=== PATIENT | female | born 1975 | race Two or more races ===

== ENCOUNTER 2018-02-01 12:55 | Emergency (ER) | payer MEDICARE, MEDICAID ==
[~2018-02-01] VITALS: Ht 157.5 cm; Wt 54.0 kg
[~2018-02-01 12:55] MED LIST: CIPR-230 PO; FOLI1TAB16 PO; FURO20TA4 PO; LEVO125T PO; MIDO5TAB PO; PANT-47 PO; RIFA550T PO; SPIR50TA5 PO; THIA500T; TRAM50TA2 PO; ZINC30CA PO
[2018-02-01 13:06] VITALS: BP 100/59
[2018-02-01] MEDS ORDERED: CLIN300C85 PO (14:00)
== END 2018-02-01 14:10 | disposition home or self-care (01) ==
LOC: ER 12:55
DX: L76.82 Other postprocedural complications of skin and subcutaneous tissue (principal); S31.105A Unspecified open wound of abdominal wall, periumbilic region without penetration into peritoneal cavity, initial encounter; K21.9 Gastro-esophageal reflux disease without esophagitis; E05.90 Thyrotoxicosis, unspecified without thyrotoxic crisis or storm; Z79.2 Long term (current) use of antibiotics; X58.XXXA Exposure to other specified factors, initial encounter; Y93.89 Activity, other specified; Y92.89 Other specified places as the place of occurrence of the external cause; Y99.8 Other external cause status
CPT/HCPCS: 99283; A6255

== ENCOUNTER 2018-02-15 19:54 | Emergency (ER) | payer MEDICARE, MEDICAID ==
[~2018-02-15] VITALS: Ht 157.5 cm; Wt 54.6 kg
[~2018-02-15 19:54] MED LIST changes: +CLIN300C85 PO
[2018-02-15] MEDS ORDERED: ondansetron/PF 4mg/2ml inj IV ONE (21:35)
[2018-02-15] MEDS ORDERED: morphine 4 MG/ML inj SYRINge IV ONE (21:35)
[2018-02-15] MEDS ORDERED: iohexol 300mg/ml 100ml inj. ONE (21:44)
[2018-02-15 22:13] LABS: URINE HCG NEGATIVE (NEG)
[2018-02-15 22:15] LABS: BASOPHILS # (AUTO) 0.1 X10'3 (0-0.2); BASOPHILS % (AUTO) 2.8 % (0-1); EOSINOPHILS # (AUTO) 0.1 X10'3 (0-0.9); EOSINOPHILS % (AUTO) 3.4 % (0-6); HEMATOCRIT 31.8 % (35.0-45.0); HEMOGLOBIN 10.9 g/dl (12.0-16.0); LYMPHOCYTES # (AUTO) 1.2 X10'3 (1.1-4.8); LYMPHOCYTES % (AUTO) 33.5 % (21-51); MEAN CORPUSCULAR HEMOGLOBIN 33.9 PG (27.0-31.0); MEAN CORPUSCULAR HGB CONC 34.5 % (33.0-36.5); MEAN CORPUSCULAR VOLUME 98.2 FL (78-98); MONOCYTES # (AUTO) 0.3 X10'3 (0-0.9); MONOCYTES % (AUTO) 6.9 % (2-12); NEUTROPHILS # (AUTO) 1.9 X10'3 (1.8-7.7); NEUTROPHILS % (AUTO) 53.4 % (42-75); PLATELET COUNT 62 X10'3 (140-440); RED BLOOD COUNT 3.23 X10'6 (4.20-5.60); WHITE BLOOD COUNT 3.7 X10'3 (4.5-11.0)
[2018-02-15 22:26] LABS: INR 1.2 INR; PARTIAL THROMBOPLASTIN TIME 27 SECONDS (22-32); PROTHROMBIN TIME 12.3 SECONDS (9.0-12.0)
[2018-02-15 22:33] LABS: ALANINE AMINOTRANSFERASE 31 U/L (12-78); ALBUMIN/GLOBULIN RATIO 0.8 (1.1-1.5); ALKALINE PHOSPHATASE 174 IU/L (46-116); ANION GAP 8 (8-16); ASPARTATE AMINO TRANSFERASE 35 U/L (10-37); BILIRUBIN,TOTAL 0.9 MG/DL (0.1-1.0); BLOOD UREA NITROGEN 15 MG/DL (7-18); BUN/CREATININE RATIO 21.1 (6.6-38.0); CALCIUM 8.5 MG/DL (8.5-10.1); CHLORIDE 108 MMOL/L (99-107); CREATININE 0.71 MG/DL (0.40-0.90); GLUCOSE 130 MG/DL (70-104); LIPASE 266 U/L (73-393); MAGNESIUM 1.6 MG/DL (1.5-2.4); POTASSIUM 3.9 MMOL/L (3.5-5.1); SODIUM 139 MMOL/L (135-145); TOTAL CARBON DIOXIDE 22.9 MMOL/L (24-32); TOTAL PROTEIN 6.7 G/DL (6.4-8.2); eGFR 89 ML/MIN
[2018-02-16 01:07] VITALS: BP 113/65
== END 2018-02-16 01:20 | disposition home or self-care (01) ==
LOC: ER 19:54
DX: S30.1XXA Contusion of abdominal wall, initial encounter (principal); K21.9 Gastro-esophageal reflux disease without esophagitis; E05.90 Thyrotoxicosis, unspecified without thyrotoxic crisis or storm; Z88.1 Allergy status to other antibiotic agents; Z79.899 Other long term (current) drug therapy; X58.XXXA Exposure to other specified factors, initial encounter; Y93.89 Activity, other specified; Y92.89 Other specified places as the place of occurrence of the external cause; Y99.8 Other external cause status
CPT/HCPCS: 36415; 74177; 80053; 81025; 82140; 83690; 83735; 85025; 85610; 85730; 96374; 96375; 99285; J2270; J2405; J7030; Q9967

== ENCOUNTER 2018-03-16 10:29 | Outpatient (CLI) | payer MEDICARE, MEDICAID | END 2018-03-16 23:59 | disposition home or self-care (01) | LOC: RAD 10:29 | PROVIDERS: ATTEND Internal Medicine Gastroenterology | DX: K70.31 Alcoholic cirrhosis of liver with ascites (principal); I81 Portal vein thrombosis; F10.10 Alcohol abuse, uncomplicated; Z76.82 Awaiting organ transplant status; Z98.890 Other specified postprocedural states; Z87.19 Personal history of other diseases of the digestive system; Z87.891 Personal history of nicotine dependence; Z79.899 Other long term (current) drug therapy | CPT/HCPCS: 76700 ==

== ENCOUNTER 2018-03-27 13:26 | Emergency (ER) | payer MEDICARE, MEDICAID ==
[~2018-03-27] VITALS: Ht 157.5 cm; Wt 54.5 kg
[2018-03-27 14:07] LABS: HEMATOCRIT 38.2 % (35.0-45.0); HEMOGLOBIN 13.5 g/dl (12.0-16.0); MEAN CORPUSCULAR HEMOGLOBIN 34.3 PG (27.0-31.0); MEAN CORPUSCULAR HGB CONC 35.3 % (33.0-36.5); MEAN CORPUSCULAR VOLUME 97.2 FL (78-98); MEAN PLATELET VOLUME 9.4 FL (7.4-10.4); PLATELET COUNT 51 X10'3 (140-440); RED BLOOD COUNT 3.93 X10'6 (4.20-5.60); RED CELL DISTRIBUTION WIDTH 14.4 % (11.5-14.5); WHITE BLOOD COUNT 3.9 X10'3 (4.5-11.0)
[2018-03-27 14:25] LABS: ANISOCYTOSIS 1+; PLATELET ESTIMATE DECREASED; TOTAL CELLS COUNTED 100
[2018-03-27 14:28] LABS: INR 1.1 INR; PARTIAL THROMBOPLASTIN TIME 29 SECONDS (22-32); PROTHROMBIN TIME 11.6 SECONDS (9.0-12.0)
[2018-03-27 14:29] LABS: URINE HCG NEGATIVE (NEG)
[2018-03-27 14:31] LABS: ALANINE AMINOTRANSFERASE 47 U/L (12-78); ALBUMIN 3.6 G/DL (3.4-5.0); ALKALINE PHOSPHATASE 184 IU/L (46-116); ANION GAP 10 (8-16); ASPARTATE AMINO TRANSFERASE 88 U/L (10-37); BILIRUBIN,TOTAL 3.8 MG/DL (0.1-1.0); BLOOD UREA NITROGEN 12 MG/DL (7-18); BUN/CREATININE RATIO 18.2 (6.6-38.0); CALCIUM 9.1 MG/DL (8.5-10.1); CHLORIDE 102 MMOL/L (99-107); CREATININE 0.66 MG/DL (0.40-0.90); GLUCOSE 106 MG/DL (70-104); POTASSIUM 3.5 MMOL/L (3.5-5.1); SODIUM 137 MMOL/L (135-145); TOTAL CARBON DIOXIDE 25.1 MMOL/L (24-32); eGFR > 90 ML/MIN
[2018-03-27 14:35] LABS: CLARITY,URINE SLIGHTLY CLOUDY (Clear); COLOR,URINE AMBER (Yellow); GLUCOSE, URINE NEGATIVE (Neg); KETONES,URINE TRACE mg/dl (Neg); LEUKOCYTE ESTERASE ,URINE NEGATIVE (Neg); NITRITES, URINE POSITIVE (Neg); OCCULT BLOOD,URINE LARGE (Neg); PH,URINE 6.5 (4.8-8.0); PROTEIN,URINE 100 mg/dl (Neg)
[2018-03-27 14:35] LABS: LIPASE 122 U/L (73-393)
[2018-03-27 14:38] LABS: ALBUMIN/GLOBULIN RATIO 0.9 (1.1-1.5); TOTAL PROTEIN 7.7 G/DL (6.4-8.2)
[2018-03-27 14:47] LABS: UA COLLECTION TYPE CLN CATCH MIDSTREAM
[2018-03-27 14:50] LABS: BACTERIA,URINE 3+ /HPF (Neg); SQUAMOUS EPITHELIAL CELL,UR MODERATE /LPF (FEW)
[2018-03-27] MEDS ORDERED: HYDROmorphone 1 mg/ml syringe IV ONE (15:50)
[2018-03-27] MEDS ORDERED: proCHLORperazine 10 MG/2 ml inj IV ONE (15:50)
[2018-03-27] MEDS ORDERED: famotidine/PF 10 mg/ml inj IV ONE (15:50)
[2018-03-27] MEDS ORDERED: normal saline 1000ML IV soln IVB ONE (15:50)
[2018-03-27] MEDS ORDERED: NITR100C6 PO (15:52)
[2018-03-27 16:51] VITALS: BP 116/83
== END 2018-03-27 16:53 | disposition home or self-care (01) ==
LOC: ER 13:27
DX: N39.0 Urinary tract infection, site not specified (principal); K74.60 Unspecified cirrhosis of liver; R51 Headache; K21.9 Gastro-esophageal reflux disease without esophagitis; E05.90 Thyrotoxicosis, unspecified without thyrotoxic crisis or storm; Z88.1 Allergy status to other antibiotic agents; Z79.899 Other long term (current) drug therapy
CPT/HCPCS: 36415; 71045; 80053; 81001; 81025; 83690; 84484; 85025; 85610; 85730; 87077; 87088; 87186; 96361; 96374; 96375; 99285; J0780; J1170; J3490; J7030; 93005

== ENCOUNTER 2018-08-09 07:55 | Emergency (ER) | payer MEDICARE, MEDICAID ==
[~2018-08-09] VITALS: Ht 157.5 cm; Wt 54.5 kg
[~2018-08-09 07:55] MED LIST changes: +NITR100C6 PO
[2018-08-09] MEDS ORDERED: diphenhydrAMINE 50 mg/ml inj IV ONE (08:25)
[2018-08-09] MEDS ORDERED: morphine 4 MG/ML inj SYRINge IV ONE (08:25)
[2018-08-09] MEDS ORDERED: ondansetron/PF 4mg/2ml inj IV ONE (08:25)
[2018-08-09 08:51] LABS: BASOPHILS % (AUTO) 0.5 % (0-1); EOSINOPHILS % (AUTO) 0.3 % (0-6); HEMATOCRIT 37.8 % (35.0-45.0); HEMOGLOBIN 13.1 g/dl (12.0-16.0); LYMPHOCYTES # (AUTO) 0.8 X10'3 (1.1-4.8); LYMPHOCYTES % (AUTO) 16.4 % (21-51); MEAN CORPUSCULAR HEMOGLOBIN 34.6 PG (27.0-31.0); MEAN CORPUSCULAR HGB CONC 34.5 % (33.0-36.5); MEAN CORPUSCULAR VOLUME 100.2 FL (78-98); MEAN PLATELET VOLUME 8.3 FL (7.4-10.4); MONOCYTES # (AUTO) 0.6 X10'3 (0-0.9); MONOCYTES % (AUTO) 12.2 % (2-12); NEUTROPHILS # (AUTO) 3.6 X10'3 (1.8-7.7); NEUTROPHILS % (AUTO) 70.6 % (42-75); PLATELET COUNT 54 X10'3 (140-440); RED BLOOD COUNT 3.77 X10'6 (4.20-5.60); RED CELL DISTRIBUTION WIDTH 15.4 % (11.5-14.5); WHITE BLOOD COUNT 5.1 X10'3 (4.5-11.0)
--- NOTE | 2018-08-09 08:55 | NUR ---
Patient states pain still 03/12, PA Sharon aware.
[2018-08-09 09:11] LABS: ALANINE AMINOTRANSFERASE 114 U/L (12-78); ALBUMIN 3.7 G/DL (3.4-5.0); ALKALINE PHOSPHATASE 105 IU/L (46-116); ANION GAP 16 (8-16); ASPARTATE AMINO TRANSFERASE 451 U/L (10-37); BILIRUBIN,TOTAL 2.9 MG/DL (0.1-1.0); BLOOD UREA NITROGEN 11 MG/DL (7-18); CALCIUM 8.3 MG/DL (8.5-10.1); CHLORIDE 99 MMOL/L (99-107); CREATININE 0.61 MG/DL (0.40-0.90); GLUCOSE 96 MG/DL (70-104); POTASSIUM 3.6 MMOL/L (3.5-5.1); SODIUM 137 MMOL/L (135-145); TOTAL CARBON DIOXIDE 22.4 MMOL/L (24-32); TOTAL PROTEIN 7.4 G/DL (6.4-8.2); eGFR > 90 ML/MIN
[2018-08-09] MEDS ORDERED: CEPH-572 PO (09:18)
[2018-08-09] MEDS ORDERED: TRAM50TA2 PO (09:18)
[2018-08-09 09:45] VITALS: BP 123/53
== END 2018-08-09 10:15 | disposition home or self-care (01) ==
LOC: ER 07:55
DX: M54.5 Low back pain (principal); K74.60 Unspecified cirrhosis of liver; K21.9 Gastro-esophageal reflux disease without esophagitis; E05.90 Thyrotoxicosis, unspecified without thyrotoxic crisis or storm; Z88.1 Allergy status to other antibiotic agents; Z79.2 Long term (current) use of antibiotics; Z79.899 Other long term (current) drug therapy
CPT/HCPCS: 36415; 80053; 85025; 96374; 96375; 99283; J1200; J2270; J2405

== ENCOUNTER 2019-07-05 16:52 | Emergency (ER) | payer MEDICAID, MEDICARE ==
[~2019-07-05] VITALS: Ht 157.5 cm; Wt 59.1 kg
[~2019-07-05 16:52] MED LIST changes: +CLIN-90 PO; -CLIN300C85 PO; -MIDO5TAB PO; +MIDO5TAB4 PO
[2019-07-05 16:57] VITALS: BP 122/60
[2019-07-05] MEDS ORDERED: DOXY100C43 PO (18:07)
== END 2019-07-05 18:35 | disposition home or self-care (01) ==
LOC: ER 16:53
DX: J32.9 Chronic sinusitis, unspecified (principal); K21.9 Gastro-esophageal reflux disease without esophagitis; E05.90 Thyrotoxicosis, unspecified without thyrotoxic crisis or storm; Z98.890 Other specified postprocedural states; Z88.1 Allergy status to other antibiotic agents; Z79.2 Long term (current) use of antibiotics; Z79.899 Other long term (current) drug therapy
CPT/HCPCS: 99283

== ENCOUNTER 2019-07-11 14:09 | Emergency (ER) | payer MEDICAID ==
[~2019-07-11] VITALS: Ht 157.5 cm; Wt 59.1 kg
[~2019-07-11 14:09] MED LIST changes: +DOXY100C43 PO
[2019-07-11 14:24] VITALS: BP 126/87
--- NOTE | 2019-07-11 14:44 | NUR ---
PT C/O NAUSEA AFTER TAKING DOXYCYCLINE STOPPED LAST DOSE.
--- NOTE | 2019-07-11 14:46 | NUR ---
LAST DOSE LAST NIGHT.
[2019-07-11] MEDS ORDERED: ONDA4TAB6 PO (15:32)
== END 2019-07-11 16:00 | disposition home or self-care (01) ==
LOC: ER 14:09
DX: R11.0 Nausea (principal); K21.9 Gastro-esophageal reflux disease without esophagitis; Z98.890 Other specified postprocedural states; Z88.0 Allergy status to penicillin; Z79.2 Long term (current) use of antibiotics; Z79.899 Other long term (current) drug therapy
CPT/HCPCS: 99283

== ENCOUNTER 2019-07-25 17:15 | Emergency (ER) | payer MEDICAID ==
[~2019-07-25] VITALS: Ht 157.5 cm; Wt 61.4 kg
[~2019-07-25 17:15] MED LIST changes: -DOXY100C43 PO; +ONDA4TAB6 PO
[2019-07-25 17:20] VITALS: BP 142/90
[2019-07-25 17:51] LABS: BASOPHILS % (AUTO) 0.7 % (0-1); EOSINOPHILS % (AUTO) 0.6 % (0-6); HEMATOCRIT 39.7 % (35.0-45.0); HEMOGLOBIN 13.8 g/dl (12.0-16.0); LYMPHOCYTES # (AUTO) 0.9 X10'3 (1.1-4.8); LYMPHOCYTES % (AUTO) 18.1 % (21-51); MEAN CORPUSCULAR HEMOGLOBIN 35.4 PG (27.0-31.0); MEAN CORPUSCULAR HGB CONC 34.9 g/dL (33.0-36.5); MEAN CORPUSCULAR VOLUME 101.5 FL (78-98); MEAN PLATELET VOLUME 8.7 FL (7.4-10.4); MONOCYTES # (AUTO) 0.3 X10'3 (0-0.9); MONOCYTES % (AUTO) 6.3 % (2-12); NEUTROPHILS # (AUTO) 3.6 X10'3 (1.8-7.7); NEUTROPHILS % (AUTO) 74.3 % (42-75); PLATELET COUNT 59 X10'3 (140-440); RED BLOOD COUNT 3.91 X10'6 (4.20-5.60); RED CELL DISTRIBUTION WIDTH 13.2 % (11.5-14.5); WHITE BLOOD COUNT 4.9 X10'3 (4.5-11.0)
[2019-07-25 18:04] LABS: ALANINE AMINOTRANSFERASE 42 U/L (12-78); ALBUMIN 3.8 G/DL (3.4-5.0); ALKALINE PHOSPHATASE 110 IU/L (46-116); ANION GAP 9 (8-16); ASPARTATE AMINO TRANSFERASE 52 U/L (10-37); BILIRUBIN,TOTAL 1.5 MG/DL (0.1-1.0); BLOOD UREA NITROGEN 11 MG/DL (7-18); BUN/CREATININE RATIO 10.8 (6.6-38.0); CALCIUM 8.7 MG/DL (8.5-10.1); CHLORIDE 101 MMOL/L (99-107); CREATININE 1.02 MG/DL (0.40-0.90); GLUCOSE 106 MG/DL (70-104); SODIUM 135 MMOL/L (135-145); TOTAL CARBON DIOXIDE 25.4 MMOL/L (24-32); TOTAL PROTEIN 7.6 G/DL (6.4-8.2); eGFR 59 ML/MIN
[2019-07-25 18:18] LABS: POTASSIUM 3.9 MMOL/L (3.5-5.1)
--- NOTE | 2019-07-25 18:30 | NUR ---
STOOL SPECIMEN SENT
[2019-07-25 18:32] LABS: URINE HCG NEGATIVE (NEG)
[2019-07-25] MEDS ORDERED: HYDR30CR99 TP (18:36)
== END 2019-07-25 19:01 | disposition home or self-care (01) ==
LOC: ER 17:15
DX: K62.5 Hemorrhage of anus and rectum (principal); R19.7 Diarrhea, unspecified; K21.9 Gastro-esophageal reflux disease without esophagitis; E03.9 Hypothyroidism, unspecified; F10.99 Alcohol use, unspecified with unspecified alcohol-induced disorder; Z86.2 Personal history of diseases of the blood and blood-forming organs and certain disorders involving the immune mechanism; Z88.1 Allergy status to other antibiotic agents; Z79.899 Other long term (current) drug therapy; Y90.9 Presence of alcohol in blood, level not specified
CPT/HCPCS: 36415; 80053; 81025; 85025; 99283

== ENCOUNTER 2019-11-28 15:19 | Emergency (ER) | payer MEDICAID ==
[~2019-11-28] VITALS: Ht 157.5 cm; Wt 63.6 kg
[~2019-11-28 15:19] MED LIST changes: -CLIN-90 PO; +CLIN-97 PO
[2019-11-28 15:24] VITALS: BP 128/96
[2019-11-28 16:44] LABS: CLARITY,URINE CLEAR (Clear); COLOR,URINE STRAW (Yellow); GLUCOSE, URINE NEGATIVE (Neg); KETONES,URINE NEGATIVE (Neg); LEUKOCYTE ESTERASE ,URINE NEGATIVE (Neg); NITRITES, URINE NEGATIVE (Neg); OCCULT BLOOD,URINE SMALL (Neg); PROTEIN,URINE 30 mg/dl (Neg)
[2019-11-28 16:47] LABS: UA COLLECTION TYPE CLN CATCH MIDSTREAM; URINE HCG NEGATIVE (NEG)
[2019-11-28 16:50] LABS: MUCUS STRANDS NONE SEEN /LPF (Neg); SQUAMOUS EPITHELIAL CELL,UR MANY /LPF (FEW); TRANSITIONAL EPI CELLS,URINE FEW /HPF
[2019-11-28 16:51] LABS: BACTERIA,URINE FEW /HPF (Neg); WBC,URINE 0-4 /HPF (0-4)
[2019-11-28] MEDS ORDERED: ketorolac trometh. 30mg/ml inj. IM ONE (17:00)
== END 2019-11-28 17:23 | disposition home or self-care (01) ==
LOC: ER 15:20
DX: S39.012A Strain of muscle, fascia and tendon of lower back, initial encounter (principal); K21.9 Gastro-esophageal reflux disease without esophagitis; Z98.890 Other specified postprocedural states; Z88.0 Allergy status to penicillin; Z88.1 Allergy status to other antibiotic agents; Z79.2 Long term (current) use of antibiotics; Z79.899 Other long term (current) drug therapy; X58.XXXA Exposure to other specified factors, initial encounter; Y93.89 Activity, other specified; Y92.89 Other specified places as the place of occurrence of the external cause; Y99.8 Other external cause status
CPT/HCPCS: 72131; 81001; 81025; 96372; 99284; J1885

== ENCOUNTER 2019-12-03 12:28 | Emergency (ER) | payer MEDICAID ==
[~2019-12-03] VITALS: Ht 157.5 cm; Wt 64.0 kg
--- NOTE | 2019-12-03 12:51 | NUR ---
Pt. was seen here last thursday for the same reason and was given toradol for the pain. Was told to follow up with PCP which she did on thursday and was perscriped prednisone 20mg BID x5days. She has returned to the ER because she hasn't experienced any relief from her back pain.
[2019-12-03] MEDS ORDERED: TRAM50TA2 PO (13:33)
[2019-12-03] MEDS ORDERED: traMADol 50MG tablet PO ONE (13:35)
[2019-12-03 13:57] VITALS: BP 102/68
== END 2019-12-03 14:05 | disposition home or self-care (01) ==
LOC: ER 12:28
DX: M54.5 Low back pain (principal); G89.29 Other chronic pain; K21.9 Gastro-esophageal reflux disease without esophagitis; Z72.89 Other problems related to lifestyle; Z79.2 Long term (current) use of antibiotics; Z79.01 Long term (current) use of anticoagulants; Z79.899 Other long term (current) drug therapy
CPT/HCPCS: 99283

== ENCOUNTER 2020-06-10 16:45 | Emergency (ER) | payer MEDICAID ==
[~2020-06-10] VITALS: Ht 157.5 cm; Wt 64.7 kg
[2020-06-10] MEDS ORDERED: ondansetron/PF 4mg/2ml inj IV ONE (17:50)
[2020-06-10] MEDS ORDERED: pantoprazole 40 MG vial IV ONE (17:50)
[2020-06-10] MEDS ORDERED: normal saline 1000ML IV soln IVB ONE (17:50)
[2020-06-10] MEDS ORDERED: ketorolac trometh. 30mg/ml inj. IV ONE (17:50)
[2020-06-10] MEDS ORDERED: famotidine/PF 10 mg/ml inj IV ONE (17:50)
[2020-06-10 18:50] LABS: MONOCYTES # (AUTO) 0.4 X10'3 (0-0.9); MONOCYTES % (AUTO) 10.2 % (2-12)
[2020-06-10 18:51] LABS: BASOPHILS % (AUTO) 0.9 % (0-1); EOSINOPHILS % (AUTO) 0.9 % (0-6); HEMATOCRIT 46.9 % (35.0-45.0); HEMOGLOBIN 16.4 g/dl (12.0-16.0); LYMPHOCYTES # (AUTO) 0.7 X10'3 (1.1-4.8); LYMPHOCYTES % (AUTO) 15.9 % (21-51); MEAN CORPUSCULAR HEMOGLOBIN 37.3 PG (27.0-31.0); MEAN CORPUSCULAR HGB CONC 34.9 g/dL (33.0-36.5); MEAN CORPUSCULAR VOLUME 107.2 FL (78-98); MEAN PLATELET VOLUME 9.4 FL (7.4-10.4); NEUTROPHILS # (AUTO) 3.1 X10'3 (1.8-7.7); NEUTROPHILS % (AUTO) 72.1 % (42-75); PLATELET COUNT 60 X10'3 (140-440); RED BLOOD COUNT 4.38 X10'6 (4.20-5.60); RED CELL DISTRIBUTION WIDTH 13.7 % (11.5-14.5); WHITE BLOOD COUNT 4.3 X10'3 (4.5-11.0)
[2020-06-10 19:23] LABS: ALANINE AMINOTRANSFERASE 67 U/L (12-78); ALBUMIN 3.5 G/DL (3.4-5.0); ALBUMIN/GLOBULIN RATIO 0.9 (1.1-1.5); ALKALINE PHOSPHATASE 238 IU/L (46-116); ANION GAP 13 (8-16); ASPARTATE AMINO TRANSFERASE 149 U/L (10-37); BILIRUBIN,TOTAL 1.7 MG/DL (0.1-1.0); BLOOD UREA NITROGEN 7 MG/DL (7-18); BUN/CREATININE RATIO 10.9 (6.6-38.0); CALCIUM 8.1 MG/DL (8.5-10.1); CHLORIDE 106 MMOL/L (99-107); CREATININE 0.64 MG/DL (0.40-0.90); GLUCOSE 117 MG/DL (70-104); POTASSIUM 3.2 MMOL/L (3.5-5.1); SODIUM 142 MMOL/L (135-145); TOTAL CARBON DIOXIDE 23.4 MMOL/L (24-32); TOTAL PROTEIN 7.4 G/DL (6.4-8.2); eGFR > 90 ML/MIN
[2020-06-10] MEDS ORDERED: metoclopramide 5 mg/ml inj IV ONE (20:35)
[2020-06-10] MEDS ORDERED: acetaminophen 325mg tablet PO ONE (20:35)
[2020-06-10] MEDS ORDERED: diphenhydrAMINE 50 mg/ml inj IV ONE (20:35)
[2020-06-10] MEDS ORDERED: normal saline 1000ml 1,000 ML IV ONE (20:40)
[2020-06-10 20:50] LABS: URINE HCG NEGATIVE (NEG)
[2020-06-10 20:52] LABS: CLARITY,URINE CLOUDY (Clear); COLOR,URINE YELLOW (Yellow); GLUCOSE, URINE NEGATIVE (Neg); KETONES,URINE NEGATIVE (Neg); LEUKOCYTE ESTERASE ,URINE SMALL (Neg); NITRITES, URINE NEGATIVE (Neg); OCCULT BLOOD,URINE LARGE (Neg); PH,URINE 6.5 (4.8-8.0); PROTEIN,URINE >=300 mg/dl (Neg)
[2020-06-10 20:56] LABS: UA COLLECTION TYPE CLN CATCH MIDSTREAM
[2020-06-10 20:58] LABS: BACTERIA,URINE FEW /HPF (Neg); MUCUS STRANDS FEW /LPF (Neg); SQUAMOUS EPITHELIAL CELL,UR FEW /LPF (FEW); WBC CLUMPS,URINE FEW /HPF (NEGATIVE); WBC,URINE 50-100 /HPF (0-4)
[2020-06-10] MEDS ORDERED: CefTRIAXone/D5W-Rocephin 1gm 50 ML IV ONE (21:25)
[2020-06-10] MEDS ORDERED: PRED20TA PO (21:32)
[2020-06-10] MEDS ORDERED: ONDA4TAB6 PO (21:32)
[2020-06-10] MEDS ORDERED: ACET-1025 PO (21:32)
[2020-06-10] MEDS ORDERED: CIP750T PO (21:32)
[2020-06-10 22:50] VITALS: BP 102/68
== END 2020-06-10 22:37 | disposition home or self-care (01) ==
LOC: ER 16:46
DX: N39.0 Urinary tract infection, site not specified (principal); R06.02 Shortness of breath; R11.2 Nausea with vomiting, unspecified; Z20.828 Contact with and (suspected) exposure to other viral communicable diseases; K21.9 Gastro-esophageal reflux disease without esophagitis; E05.90 Thyrotoxicosis, unspecified without thyrotoxic crisis or storm; Z86.2 Personal history of diseases of the blood and blood-forming organs and certain disorders involving the immune mechanism; Z98.890 Other specified postprocedural states; Z72.89 Other problems related to lifestyle; Z88.1 Allergy status to other antibiotic agents; Z79.2 Long term (current) use of antibiotics; Z79.899 Other long term (current) drug therapy
CPT/HCPCS: 36415; 71046; 80053; 81001; 81025; 83605; 83880; 85025; 87040; 87088; 87635; 96361; 96365; 96375; 99285; C9113; J0696; J1200; J1885; J2405; J2765; J3490; J7030

== ENCOUNTER 2020-08-18 13:57 | Emergency (ER) | payer MEDICAID ==
[~2020-08-18] VITALS: Ht 157.5 cm; Wt 66.8 kg
[2020-08-18 14:06] VITALS: BP 130/97
[2020-08-18] MEDS ORDERED: morphine 4 MG/ML inj SYRINge IV PRN (14:15)
[2020-08-18] MEDS ORDERED: ondansetron/PF 4mg/2ml inj IV ONE (14:15)
[2020-08-18] MEDS ORDERED: normal saline 1000ML IV soln IVB ONE (14:15)
[2020-08-18 14:45] LABS: BASOPHILS % (AUTO) 0.6 % (0-1); EOSINOPHILS % (AUTO) 0.2 % (0-6); HEMATOCRIT 42.5 % (35.0-45.0); HEMOGLOBIN 14.6 g/dl (12.0-16.0); LYMPHOCYTES # (AUTO) 0.4 X10'3 (1.1-4.8); LYMPHOCYTES % (AUTO) 12.9 % (21-51); MEAN CORPUSCULAR HEMOGLOBIN 38.3 PG (27.0-31.0); MEAN CORPUSCULAR HGB CONC 34.4 g/dL (33.0-36.5); MEAN CORPUSCULAR VOLUME 111.3 FL (78-98); MEAN PLATELET VOLUME 9.5 FL (7.4-10.4); MONOCYTES # (AUTO) 0.4 X10'3 (0-0.9); MONOCYTES % (AUTO) 12.7 % (2-12); NEUTROPHILS # (AUTO) 2.3 X10'3 (1.8-7.7); NEUTROPHILS % (AUTO) 73.6 % (42-75); PLATELET COUNT 54 X10'3 (140-440); RED BLOOD COUNT 3.82 X10'6 (4.20-5.60); RED CELL DISTRIBUTION WIDTH 14.6 % (11.5-14.5); WHITE BLOOD COUNT 3.1 X10'3 (4.5-11.0)
[2020-08-18 14:57] LABS: ALANINE AMINOTRANSFERASE 89 U/L (12-78); ALBUMIN 3.6 G/DL (3.4-5.0); ALKALINE PHOSPHATASE 240 IU/L (46-116); ANION GAP 10 (8-16); ASPARTATE AMINO TRANSFERASE 250 U/L (10-37); BILIRUBIN,TOTAL 6.5 MG/DL (0.1-1.0); BLOOD UREA NITROGEN 7 MG/DL (7-18); BUN/CREATININE RATIO 9.1 (6.6-38.0); CALCIUM 9.6 MG/DL (8.5-10.1); CHLORIDE 99 MMOL/L (99-107); CREATININE 0.77 MG/DL (0.40-0.90); GLUCOSE 120 MG/DL (70-104); SODIUM 137 MMOL/L (135-145); TOTAL CARBON DIOXIDE 27.6 MMOL/L (24-32); eGFR 81 ML/MIN
[2020-08-18 14:58] LABS: ALBUMIN/GLOBULIN RATIO 0.9 (1.1-1.5); TOTAL PROTEIN 7.5 G/DL (6.4-8.2)
[2020-08-18 15:10] LABS: FERRITIN 337 NG/ML (8-252); LACTATE DEHYDROGENASE 305 U/L (81-234); LIPASE 198 U/L (73-393)
[2020-08-18 15:15] LABS: C-REACTIVE PROTEIN < 0.05 MG/DL (0.0-0.5)
[2020-08-18 15:51] LABS: CLARITY,URINE CLEAR (Clear); COLOR,URINE AMBER (Yellow)
[2020-08-18 15:55] LABS: UA COLLECTION TYPE CLN CATCH MIDSTREAM
[2020-08-18 15:58] LABS: BACTERIA,URINE FEW /HPF (Neg); MUCUS STRANDS FEW /LPF (Neg); SQUAMOUS EPITHELIAL CELL,UR MODERATE /LPF (FEW); TRANSITIONAL EPI CELLS,URINE FEW /HPF; WBC,URINE 0-4 /HPF (0-4)
[2020-08-18] MEDS ORDERED: METR500T PO (16:40)
[2020-08-18] MEDS ORDERED: DIPH1TAB PO (16:40)
[2020-08-18] MEDS ORDERED: CIPR-259 PO (16:40)
== END 2020-08-18 17:13 | disposition home or self-care (01) ==
LOC: ER 13:58
DX: K52.9 Noninfective gastroenteritis and colitis, unspecified (principal); Z20.828 Contact with and (suspected) exposure to other viral communicable diseases; R74.01 Elevation of levels of liver transaminase levels; K74.69 Other cirrhosis of liver; K21.9 Gastro-esophageal reflux disease without esophagitis; E05.90 Thyrotoxicosis, unspecified without thyrotoxic crisis or storm; Z86.2 Personal history of diseases of the blood and blood-forming organs and certain disorders involving the immune mechanism; Z88.1 Allergy status to other antibiotic agents; Z79.2 Long term (current) use of antibiotics; Z79.899 Other long term (current) drug therapy
CPT/HCPCS: 36415; 74176; 80053; 81001; 82728; 83615; 83690; 84145; 85025; 85384; 86140; 87635; 99284

== ENCOUNTER 2020-10-21 10:43 | Emergency (ER) | payer MEDICAID ==
[~2020-10-21] VITALS: Ht 157.5 cm; Wt 66.8 kg
[~2020-10-21 10:43] MED LIST changes: +CIPR-202 PO; -CIPR-230 PO; +DIPH1TAB PO
[2020-10-21 12:19] LABS: BASOPHILS % (AUTO) 0.6 % (0-1); EOSINOPHILS % (AUTO) 0.2 % (0-6); HEMATOCRIT 42.3 % (35.0-45.0); HEMOGLOBIN 14.5 g/dl (12.0-16.0); LYMPHOCYTES # (AUTO) 0.5 X10'3 (1.1-4.8); LYMPHOCYTES % (AUTO) 13.8 % (21-51); MEAN CORPUSCULAR HEMOGLOBIN 36.5 PG (27.0-31.0); MEAN CORPUSCULAR HGB CONC 34.3 g/dL (33.0-36.5); MEAN CORPUSCULAR VOLUME 106.3 FL (78-98); MEAN PLATELET VOLUME 9.3 FL (7.4-10.4); MONOCYTES # (AUTO) 0.3 X10'3 (0-0.9); MONOCYTES % (AUTO) 8.3 % (2-12); NEUTROPHILS # (AUTO) 2.6 X10'3 (1.8-7.7); NEUTROPHILS % (AUTO) 77.1 % (42-75); RED BLOOD COUNT 3.98 X10'6 (4.20-5.60); RED CELL DISTRIBUTION WIDTH 12.9 % (11.5-14.5); WHITE BLOOD COUNT 3.4 X10'3 (4.5-11.0)
[2020-10-21 12:27] LABS: ALANINE AMINOTRANSFERASE 49 U/L (12-78); ALBUMIN 3.8 G/DL (3.4-5.0); ALKALINE PHOSPHATASE 198 IU/L (46-116); ANION GAP 12 (8-16); ASPARTATE AMINO TRANSFERASE 172 U/L (10-37); BILIRUBIN,TOTAL 5.8 MG/DL (0.1-1.0); BLOOD UREA NITROGEN 6 MG/DL (7-18); CALCIUM 9.6 MG/DL (8.5-10.1); CHLORIDE 102 MMOL/L (99-107); CREATININE 0.86 MG/DL (0.40-0.90); GLUCOSE 116 MG/DL (70-104); LIPASE 193 U/L (73-393); POTASSIUM 3.3 MMOL/L (3.5-5.1); SODIUM 143 MMOL/L (135-145); TOTAL CARBON DIOXIDE 28.8 MMOL/L (24-32); TOTAL PROTEIN 7.5 G/DL (6.4-8.2); eGFR 71 ML/MIN
[2020-10-21 12:45] LABS: PLATELET COUNT 33 X10'3 (140-440)
[2020-10-21] MEDS ORDERED: normal saline 1000ML IV soln IVB ONE ×2 (12:45→13:25)
[2020-10-21] MEDS ORDERED: dicyclomine 10 MG capsule PO ONE (12:45)
[2020-10-21] MEDS ORDERED: ondansetron 4mg rapidly disintigrating tab PO ONE (12:45)
[2020-10-21] MEDS ORDERED: mag hydrox/Alum hydrox/simeth 30ml oral suspension PO ONE (12:45)
[2020-10-21] MEDS ORDERED: LORazepam 0.5 MG tablet PO STA (12:47)
[2020-10-21] MEDS ORDERED: pantoprazole 40 MG vial IV ONE (13:25)
[2020-10-21] MEDS ORDERED: LORazepam 2 mg/ml vial IV ONE (13:25)
[2020-10-21] MEDS ORDERED: folic acid 1mg/0.2ml inj IV ONE (13:25)
[2020-10-21] MEDS ORDERED: thiamine 100mg/ml 2ml inj. IV ONE (13:25)
[2020-10-21 13:54] LABS: CLARITY,URINE SLIGHTLY CLOUDY (Clear); COLOR,URINE AMBER (Yellow); UA COLLECTION TYPE VOIDED; URINE HCG NEGATIVE (NEG)
[2020-10-21] MEDS ORDERED: iohexol 350MG/ML 100ml bottle IV ONE (13:57)
[2020-10-21 14:04] LABS: MUCUS STRANDS MODERATE /LPF (Neg); SQUAMOUS EPITHELIAL CELL,UR MANY /LPF (FEW)
[2020-10-21 14:05] LABS: BACTERIA,URINE 1+ /HPF (Neg)
[2020-10-21 14:18] LABS: % IRON SATURATION 98 % (11-46); IRON 251 UG/DL (49-151); TOTAL IRON BINDING CAPACITY 256 UG/DL (259-388)
[2020-10-21 14:40] LABS: ETHANOL < 0.010 GM/DL (0.0-0.010); FERRITIN 295 NG/ML (8-252)
[2020-10-21] MEDS ORDERED: SULF1TAB49 PO (15:51)
[2020-10-21] MEDS ORDERED: METR-159 PO (16:02)
[2020-10-21] MEDS ORDERED: ONDA4TAB6 PO (16:20)
[2020-10-21] MEDS ORDERED: MET0.75G TP (16:20)
[2020-10-21] MEDS ORDERED: morphine 4 MG/ML inj SYRINge IV ONE (16:25)
--- NOTE | 2020-10-21 16:40 | NUR ---
Med administration behind d/t pt load. when ready to administer pt refused saying she was ready to go home. Pt was provided a script for abx which she took with her. billy alex notified.
[2020-10-21] MEDS: CefTRIAXone/D5W-Rocephin 1gm 50 ML IV ONE ×2 (16:41→16:43)
[2020-10-21 16:49] VITALS: BP 113/80
== END 2020-10-21 16:48 | disposition home or self-care (01) ==
LOC: ER 10:44
DX: K70.31 Alcoholic cirrhosis of liver with ascites (principal); D69.6 Thrombocytopenia, unspecified; N39.0 Urinary tract infection, site not specified; N76.0 Acute vaginitis; F10.10 Alcohol abuse, uncomplicated; B96.89 Other specified bacterial agents as the cause of diseases classified elsewhere; K21.9 Gastro-esophageal reflux disease without esophagitis; Z86.2 Personal history of diseases of the blood and blood-forming organs and certain disorders involving the immune mechanism; E05.90 Thyrotoxicosis, unspecified without thyrotoxic crisis or storm; Z98.890 Other specified postprocedural states; Z88.1 Allergy status to other antibiotic agents; Z79.899 Other long term (current) drug therapy; Y90.9 Presence of alcohol in blood, level not specified
CPT/HCPCS: 36415; 74177; 76705; 80053; 80320; 81001; 81025; 82728; 83540; 83550; 83605; 83690; 84145; 85025; 87210; 96361; 96374; 96375; 99285; C9113; J2060; J3411; J3490; J7030; Q0112; Q9967; J0696

== ENCOUNTER 2020-12-28 10:59 | Emergency (ER) | payer MEDICAID ==
[~2020-12-28] VITALS: Ht 157.5 cm; Wt 66.8 kg
--- NOTE | 2020-12-28 13:07 | NUR ---
pt refuses pain med at this time, hasnt eaten anything yet
[2020-12-28 13:58] VITALS: BP 125/83
== END 2020-12-28 14:00 | disposition short-term general hospital (02) ==
LOC: ER 11:00
DX: S69.81XA Other specified injuries of right wrist, hand and finger(s), initial encounter (principal); K21.9 Gastro-esophageal reflux disease without esophagitis; E07.9 Disorder of thyroid, unspecified; Z88.1 Allergy status to other antibiotic agents; Z79.899 Other long term (current) drug therapy; W18.39XA Other fall on same level, initial encounter; Y93.89 Activity, other specified; Y92.89 Other specified places as the place of occurrence of the external cause; Y99.8 Other external cause status
CPT/HCPCS: 29125; 73090; 73110; 73130; 99284

== ENCOUNTER 2021-04-06 10:48 | Emergency (ER) | payer MEDICAID ==
[~2021-04-06] VITALS: Ht 157.5 cm; Wt 63.0 kg
[2021-04-06 12:25] LABS: BASOPHILS % (AUTO) 0.5 % (0-1); EOSINOPHILS % (AUTO) 0 % (0-6); HEMATOCRIT 42.2 % (35.0-45.0); HEMOGLOBIN 14.2 g/dl (12.0-16.0); LYMPHOCYTES # (AUTO) 0.3 X10'3 (1.1-4.8); LYMPHOCYTES % (AUTO) 20.2 % (21-51); MEAN CORPUSCULAR HEMOGLOBIN 32.6 PG (27.0-31.0); MEAN CORPUSCULAR HGB CONC 33.6 g/dL (33.0-36.5); MEAN CORPUSCULAR VOLUME 96.9 FL (78-98); MEAN PLATELET VOLUME 10.5 FL (7.4-10.4); MONOCYTES # (AUTO) 0.2 X10'3 (0-0.9); MONOCYTES % (AUTO) 12.2 % (2-12); NEUTROPHILS % (AUTO) 67.1 % (42-75); RED BLOOD COUNT 4.35 X10'6 (4.20-5.60); RED CELL DISTRIBUTION WIDTH 12.6 % (11.5-14.5); WHITE BLOOD COUNT 1.5 X10'3 (4.5-11.0)
[2021-04-06 12:30] LABS: D-DIMER 0.66 MG/L FEU (0-0.50)
[2021-04-06 12:34] LABS: ALANINE AMINOTRANSFERASE 33 U/L (12-78); ALBUMIN 3.2 G/DL (3.4-5.0); ALBUMIN/GLOBULIN RATIO 0.8 (1.1-1.5); ALKALINE PHOSPHATASE 145 IU/L (46-116); ANION GAP 11 (8-16); ASPARTATE AMINO TRANSFERASE 43 U/L (10-37); BILIRUBIN,TOTAL 0.7 MG/DL (0.1-1.0); BLOOD UREA NITROGEN 9 MG/DL (7-18); C-REACTIVE PROTEIN 2.02 MG/DL (0.0-0.5); CALCIUM 8.1 MG/DL (8.5-10.1); CHLORIDE 104 MMOL/L (99-107); CREATININE 0.69 MG/DL (0.40-0.90); GLUCOSE 111 MG/DL (70-104); POTASSIUM 3.9 MMOL/L (3.5-5.1); SODIUM 137 MMOL/L (135-145); TOTAL CARBON DIOXIDE 21.7 MMOL/L (24-32); TOTAL PROTEIN 7.1 G/DL (6.4-8.2); eGFR > 90 ML/MIN
[2021-04-06 12:41] LABS: PLATELET COUNT 47 X10'3 (140-440)
[2021-04-06 12:50] LABS: TOTAL CELLS COUNTED 100
[2021-04-06 12:53] LABS: PLATELET ESTIMATE DECREASED
--- NOTE | 2021-04-06 14:03 | NUR ---
RECEIVED A VERBAL ORDER FOR DECADRON 10MG AND TYLENOL 650MG PO.
[2021-04-06] MEDS ORDERED: acetaminophen 325mg tablet PO STA (14:07)
[2021-04-06] MEDS ORDERED: dexamethasone sod phosphate 10mg/ml inj IV STA ×2 (14:07)
[2021-04-06] MEDS ORDERED: normal saline 1000ml 1,000 ML IV STA (14:07)
--- NOTE | 2021-04-06 14:08 | NUR ---
RECEIVED A VERBAL ORDER FOR NORMAL SALINE 1L BOLUS AND DECADRON 10MG IV INSTEAD OF IM.
[2021-04-06] MEDS ORDERED: acetaminophen 325mg tablet PO ONE (14:10)
[2021-04-06] MEDS ORDERED: normal saline 1000ML IV soln IVB ONE (14:10)
[2021-04-06] MEDS ORDERED: iohexol 350MG/ML 100ml bottle IV ONE (16:06)
[2021-04-06 17:42] VITALS: BP 118/66
== END 2021-04-06 18:16 | disposition home or self-care (01) ==
LOC: ER 10:49
DX: U07.1 COVID-19 (principal); J12.82 Pneumonia due to coronavirus disease 2019; D69.6 Thrombocytopenia, unspecified; D70.9 Neutropenia, unspecified; K74.60 Unspecified cirrhosis of liver; J45.909 Unspecified asthma, uncomplicated; K21.9 Gastro-esophageal reflux disease without esophagitis; E05.90 Thyrotoxicosis, unspecified without thyrotoxic crisis or storm; Z86.2 Personal history of diseases of the blood and blood-forming organs and certain disorders involving the immune mechanism; Z98.890 Other specified postprocedural states; Z88.1 Allergy status to other antibiotic agents; Z79.2 Long term (current) use of antibiotics; Z79.899 Other long term (current) drug therapy; Z72.89 Other problems related to lifestyle
CPT/HCPCS: 36415; 71045; 71275; 80053; 83605; 83880; 84145; 85007; 85025; 85379; 86140; 87040; 87077; 87186; 87635; 93005; 96374; 99285; C9803; J1100; Q9967

== ENCOUNTER 2021-04-08 19:43 | Emergency (ER) | payer MEDICAID ==
[~2021-04-08] VITALS: Ht 157.5 cm; Wt 63.6 kg
[2021-04-08] MEDS ORDERED: dexamethasone inj 8 MG in normal saline 50ml IV soln 50 ML IV SCH (20:45)
[2021-04-08 21:02] LABS: BASOPHILS % (AUTO) 0.3 % (0-1); EOSINOPHILS % (AUTO) 0 % (0-6); HEMATOCRIT 41.4 % (35.0-45.0); LYMPHOCYTES # (AUTO) 0.3 X10'3 (1.1-4.8); LYMPHOCYTES % (AUTO) 11.6 % (21-51); MEAN CORPUSCULAR HEMOGLOBIN 32.7 PG (27.0-31.0); MEAN CORPUSCULAR HGB CONC 33.8 g/dL (33.0-36.5); MEAN PLATELET VOLUME 10.5 FL (7.4-10.4); MONOCYTES # (AUTO) 0.2 X10'3 (0-0.9); MONOCYTES % (AUTO) 7.3 % (2-12); NEUTROPHILS % (AUTO) 80.8 % (42-75); RED BLOOD COUNT 4.27 X10'6 (4.20-5.60); RED CELL DISTRIBUTION WIDTH 12.6 % (11.5-14.5)
[2021-04-08 21:08] LABS: WHITE BLOOD COUNT 2.5 X10'3 (4.5-11.0)
[2021-04-08 21:09] LABS: PLATELET COUNT 42 X10'3 (140-440)
[2021-04-08 21:10] LABS: D-DIMER 1.27 MG/L FEU (0-0.50)
[2021-04-08 21:42] LABS: PLATELET ESTIMATE DECREASED; TOTAL CELLS COUNTED 100
[2021-04-08 22:04] LABS: ALANINE AMINOTRANSFERASE 31 U/L (12-78); ALBUMIN 2.9 G/DL (3.4-5.0); ALBUMIN/GLOBULIN RATIO 0.8 (1.1-1.5); ALKALINE PHOSPHATASE 141 IU/L (46-116); ANION GAP 12 (8-16); ASPARTATE AMINO TRANSFERASE 43 U/L (10-37); BILIRUBIN,TOTAL 0.6 MG/DL (0.1-1.0); BLOOD UREA NITROGEN 9 MG/DL (7-18); BUN/CREATININE RATIO 11.1 (6.6-38.0); C-REACTIVE PROTEIN 5.34 MG/DL (0.0-0.5); CALCIUM 8.3 MG/DL (8.5-10.1); CHLORIDE 108 MMOL/L (99-107); CREATININE 0.81 MG/DL (0.40-0.90); GLUCOSE 115 MG/DL (70-104); POTASSIUM 3.1 MMOL/L (3.5-5.1); SODIUM 142 MMOL/L (135-145); TOTAL CARBON DIOXIDE 22.1 MMOL/L (24-32); TOTAL PROTEIN 6.6 G/DL (6.4-8.2); TROPONIN I < 0.04 NG/ML (0.0-0.05); eGFR 76 ML/MIN
[2021-04-08] MEDS ORDERED: normal saline 1000ML IV soln IVB ONE (22:10)
[2021-04-08] MEDS ORDERED: potassium Cl 20 mEq SR tablet PO STA (22:23)
[2021-04-08] MEDS ORDERED: ondansetron/PF 4mg/2ml inj IV ONE (22:25)
--- NOTE | 2021-04-08 22:45 | NUR ---
PATIENT AMBULATED AROUND AMBULANCE BAY WITH PULSE OX PROBE INTACT. O2 SATS STAYED BETWEEN 90%-93% THROUGHOUT ACTIVITY.
[2021-04-08] MEDS ORDERED: CASIRIVIMAB/IMDEVIMAB inject. 10 ML in normal saline 100ml IV soln 100 ML IV ONE (23:00)
[2021-04-08] MEDS ORDERED: DEC4T PO (23:09)
[2021-04-09 01:43] VITALS: BP 93/56
== END 2021-04-09 01:45 | disposition home or self-care (01) ==
LOC: ER 19:45
DX: U07.1 COVID-19 (principal); J02.9 Acute pharyngitis, unspecified; E87.6 Hypokalemia; R05 Cough; R06.02 Shortness of breath; R07.89 Other chest pain; R50.9 Fever, unspecified; J45.909 Unspecified asthma, uncomplicated; K21.9 Gastro-esophageal reflux disease without esophagitis; E05.90 Thyrotoxicosis, unspecified without thyrotoxic crisis or storm; F17.200 Nicotine dependence, unspecified, uncomplicated; Z86.2 Personal history of diseases of the blood and blood-forming organs and certain disorders involving the immune mechanism; Z98.890 Other specified postprocedural states; Z88.1 Allergy status to other antibiotic agents; Z79.2 Long term (current) use of antibiotics; Z79.899 Other long term (current) drug therapy
CPT/HCPCS: 36415; 71045; 80053; 83605; 84145; 84484; 85007; 85025; 85379; 86140; 87040; 93005; 96361; 96365; 96375; 99285; J1100; J2405; J7030; M0243; Q0244

== ENCOUNTER 2021-05-07 08:17 | Emergency (ER) | payer MEDICAID ==
[~2021-05-07] VITALS: Ht 157.5 cm; Wt 63.6 kg
[2021-05-07 08:36] VITALS: BP 101/77
[2021-05-07 09:22] LABS: BASOPHILS % (AUTO) 0.1 % (0-1); EOSINOPHILS % (AUTO) 0 % (0-6); HEMATOCRIT 39.5 % (35.0-45.0); HEMOGLOBIN 13.1 g/dl (12.0-16.0); LYMPHOCYTES # (AUTO) 1.2 X10'3 (1.1-4.8); MEAN CORPUSCULAR HEMOGLOBIN 32.9 PG (27.0-31.0); MEAN CORPUSCULAR HGB CONC 33.2 g/dL (33.0-36.5); MEAN PLATELET VOLUME 10.2 FL (7.4-10.4); MONOCYTES # (AUTO) 0.7 X10'3 (0-0.9); MONOCYTES % (AUTO) 14.4 % (2-12); NEUTROPHILS % (AUTO) 61.5 % (42-75); PLATELET COUNT 137 X10'3 (140-440); RED BLOOD COUNT 3.99 X10'6 (4.20-5.60); RED CELL DISTRIBUTION WIDTH 14.3 % (11.5-14.5); WHITE BLOOD COUNT 4.9 X10'3 (4.5-11.0)
[2021-05-07] MEDS ORDERED: AZIT-72 PO (09:41)
[2021-05-07 09:43] LABS: ALANINE AMINOTRANSFERASE 86 U/L (12-78); ALBUMIN/GLOBULIN RATIO 0.8 (1.1-1.5); ALKALINE PHOSPHATASE 95 IU/L (46-116); ANION GAP 10 (8-16); ASPARTATE AMINO TRANSFERASE 49 U/L (10-37); BILIRUBIN,TOTAL 0.7 MG/DL (0.1-1.0); BLOOD UREA NITROGEN 12 MG/DL (7-18); BUN/CREATININE RATIO 17.9 (6.6-38.0); CALCIUM 8.4 MG/DL (8.5-10.1); CHLORIDE 107 MMOL/L (99-107); CREATININE 0.67 MG/DL (0.40-0.90); GLUCOSE 113 MG/DL (70-104); POTASSIUM 3.4 MMOL/L (3.5-5.1); SODIUM 140 MMOL/L (135-145); TOTAL CARBON DIOXIDE 22.9 MMOL/L (24-32); TOTAL PROTEIN 6.9 G/DL (6.4-8.2); eGFR > 90 ML/MIN
== END 2021-05-07 10:24 | disposition home or self-care (01) ==
LOC: ER 08:18
DX: U09.9 Post COVID-19 condition, unspecified (principal); R05.3 Chronic cough; J45.909 Unspecified asthma, uncomplicated; K21.9 Gastro-esophageal reflux disease without esophagitis; K76.9 Liver disease, unspecified; E05.90 Thyrotoxicosis, unspecified without thyrotoxic crisis or storm; Z86.2 Personal history of diseases of the blood and blood-forming organs and certain disorders involving the immune mechanism; Z88.1 Allergy status to other antibiotic agents; Z79.2 Long term (current) use of antibiotics; Z79.899 Other long term (current) drug therapy
CPT/HCPCS: 36415; 71045; 80053; 85025; 99284

== ENCOUNTER 2022-02-16 13:40 | Emergency (ER) | payer MEDICAID ==
[~2022-02-16] VITALS: Ht 157.5 cm; Wt 62.3 kg
[~2022-02-16 13:40] MED LIST changes: -FOLI1TAB16 PO; +FOLI1TAB27 PO
[2022-02-16 13:43] VITALS: BP 140/92
[2022-02-16 14:07] LABS: BASOPHILS % (AUTO) 0.7 % (0-1); HEMOGLOBIN 15.7 g/dl (12.0-16.0); LYMPHOCYTES # (AUTO) 0.8 X10'3 (1.1-4.8); LYMPHOCYTES % (AUTO) 25.8 % (21-51); MEAN CORPUSCULAR HEMOGLOBIN 33.8 PG (27.0-31.0); MEAN CORPUSCULAR HGB CONC 34.9 g/dL (33.0-36.5); MEAN CORPUSCULAR VOLUME 96.6 FL (78-98); MEAN PLATELET VOLUME 10.5 FL (7.4-10.4); MONOCYTES # (AUTO) 0.3 X10'3 (0-0.9); MONOCYTES % (AUTO) 8.3 % (2-12); NEUTROPHILS % (AUTO) 64.2 % (42-75); PLATELET COUNT 62 X10'3 (140-440); RED BLOOD COUNT 4.66 X10'6 (4.20-5.60); RED CELL DISTRIBUTION WIDTH 11.9 % (11.5-14.5); WHITE BLOOD COUNT 3.1 X10'3 (4.5-11.0)
[2022-02-16 14:11] LABS: URINE HCG NEGATIVE (NEG)
[2022-02-16 14:18] LABS: ALANINE AMINOTRANSFERASE 39 U/L (12-78); ALBUMIN 4.1 G/DL (3.4-5.0); ALKALINE PHOSPHATASE 143 IU/L (46-116); ANION GAP 6 (8-16); ASPARTATE AMINO TRANSFERASE 39 U/L (10-37); BILIRUBIN,TOTAL 4.3 MG/DL (0.1-1.0); BLOOD UREA NITROGEN 9 MG/DL (7-18); BUN/CREATININE RATIO 14.5 (6.6-38.0); CALCIUM 9.3 MG/DL (8.5-10.1); CHLORIDE 98 MMOL/L (99-107); CREATININE 0.62 MG/DL (0.40-0.90); GLUCOSE 99 MG/DL (70-104); LIPASE 132 U/L (73-393); POTASSIUM 3.5 MMOL/L (3.5-5.1); SODIUM 135 MMOL/L (135-145); TOTAL CARBON DIOXIDE 30.8 MMOL/L (24-32); TOTAL PROTEIN 8.1 G/DL (6.4-8.2); eGFR > 90 ML/MIN
[2022-02-16 16:03] LABS: CLARITY,URINE CLOUDY (Clear); GLUCOSE, URINE NEGATIVE (Neg); KETONES,URINE 15 mg/dl (Neg); LEUKOCYTE ESTERASE ,URINE NEGATIVE (Neg); OCCULT BLOOD,URINE SMALL (Neg); PROTEIN,URINE 100 mg/dl (Neg)
[2022-02-16 16:05] LABS: UA COLLECTION TYPE CLN CATCH MIDSTREAM
[2022-02-16] MEDS ORDERED: ondansetron/PF 4mg/2ml inj IV ONE (16:05)
[2022-02-16] MEDS ORDERED: normal saline 1000ml 1,000 ML IV ONE (16:05)
[2022-02-16 16:09] LABS: NITRITES, URINE NEGATIVE (Neg)
[2022-02-16 16:10] LABS: COLOR,URINE AMBER (Yellow); WBC,URINE 0-4 /HPF (0-4)
[2022-02-16 16:11] LABS: BACTERIA,URINE 1+ /HPF (Neg); MUCUS STRANDS MODERATE /LPF (Neg); RBC,URINE 20-50 /HPF (0-2); SQUAMOUS EPITHELIAL CELL,UR MANY /LPF (FEW)
[2022-02-16] MEDS ORDERED: ciprofloxacin 250mg tablet PO ONE (17:05)
[2022-02-16] MEDS ORDERED: CIPR-259 PO (17:10)
[2022-02-16] MEDS ORDERED: ONDA4TAB12 PO (17:10)
== END 2022-02-16 17:47 | disposition home or self-care (01) ==
LOC: ER 13:40
DX: N10 Acute pyelonephritis (principal); R11.2 Nausea with vomiting, unspecified; J45.909 Unspecified asthma, uncomplicated; K21.9 Gastro-esophageal reflux disease without esophagitis; Z88.1 Allergy status to other antibiotic agents
CPT/HCPCS: 80053; 81001; 81025; 83690; 85025; 93005; 96374; 99284; J2405; J7030

== ENCOUNTER 2022-06-02 12:51 | Emergency (ER) | payer MEDICAID ==
[~2022-06-02] VITALS: Ht 157.5 cm; Wt 62.3 kg
[~2022-06-02 12:51] MED LIST changes: +ONDA4TAB12 PO
[2022-06-02 14:22] VITALS: BP 128/84
[2022-06-02 14:50] LABS: BASOPHILS % (AUTO) 0.8 % (0-1); EOSINOPHILS # (AUTO) 0.1 X10'3 (0-0.9); EOSINOPHILS % (AUTO) 1.8 % (0-6); HEMATOCRIT 36.7 % (35.0-45.0); HEMOGLOBIN 12.8 g/dl (12.0-16.0); LYMPHOCYTES # (AUTO) 1.3 X10'3 (1.1-4.8); LYMPHOCYTES % (AUTO) 30.6 % (21-51); MEAN CORPUSCULAR HEMOGLOBIN 34.5 PG (27.0-31.0); MEAN CORPUSCULAR HGB CONC 34.8 g/dL (33.0-36.5); MEAN PLATELET VOLUME 9.7 FL (7.4-10.4); MONOCYTES # (AUTO) 0.4 X10'3 (0-0.9); MONOCYTES % (AUTO) 8.4 % (2-12); NEUTROPHILS # (AUTO) 2.5 X10'3 (1.8-7.7); NEUTROPHILS % (AUTO) 58.4 % (42-75); PLATELET COUNT 106 X10'3 (140-440); RED BLOOD COUNT 3.71 X10'6 (4.20-5.60); RED CELL DISTRIBUTION WIDTH 13.7 % (11.5-14.5); WHITE BLOOD COUNT 4.3 X10'3 (4.5-11.0)
[2022-06-02 15:04] LABS: ALANINE AMINOTRANSFERASE 22 U/L (12-78); ALBUMIN 3.8 G/DL (3.4-5.0); ALBUMIN/GLOBULIN RATIO 1.2 (1.1-1.5); ALKALINE PHOSPHATASE 105 IU/L (46-116); ANION GAP 7 (8-16); ASPARTATE AMINO TRANSFERASE 29 U/L (10-37); BILIRUBIN,TOTAL 0.9 MG/DL (0.1-1.0); BLOOD UREA NITROGEN 8 MG/DL (7-18); BUN/CREATININE RATIO 12.7 (6.6-38.0); CALCIUM 9.3 MG/DL (8.5-10.1); CHLORIDE 104 MMOL/L (99-107); CREATININE 0.63 MG/DL (0.40-0.90); GLUCOSE 91 MG/DL (70-104); POTASSIUM 3.7 MMOL/L (3.5-5.1); SODIUM 138 MMOL/L (135-145); TOTAL CARBON DIOXIDE 27.4 MMOL/L (24-32); TOTAL PROTEIN 7.1 G/DL (6.4-8.2); eGFR > 90 ML/MIN
[2022-06-02] MEDS ORDERED: ketorolac trometh. 30mg/ml inj. IV ONE (17:30)
[2022-06-02] MEDS ORDERED: normal saline 1000ML IV soln IVB ONE (17:30)
[2022-06-02] MEDS ORDERED: medroxyprogesterone acet. 2.5mg tablet PO STA (17:48)
[2022-06-02] MEDS ORDERED: tranexamic acid 100mg/ml inj. IV ONE (17:50)
--- NOTE | 2022-06-02 18:07 | NUR ---
IVP GIVEN BY ER BROOM MACHINE OPERATOR
--- NOTE | 2022-06-02 19:05 | NUR ---
iv dc'd pt being discharged dressing applied
== END 2022-06-02 19:06 | disposition home or self-care (01) ==
LOC: ER 12:52
DX: N93.8 Other specified abnormal uterine and vaginal bleeding (principal); D25.9 Leiomyoma of uterus, unspecified; J45.909 Unspecified asthma, uncomplicated; K21.9 Gastro-esophageal reflux disease without esophagitis; Z88.0 Allergy status to penicillin; Z88.1 Allergy status to other antibiotic agents
CPT/HCPCS: 36415; 76830; 76856; 80053; 85025; 93976; 96361; 96374; 96375; 99284; J1885; J3490; J7030

== ENCOUNTER 2023-04-15 09:36 | Outpatient (CLI) | payer MEDICAID | END 2023-04-15 23:59 | disposition home or self-care (01) | LOC: RAD 09:36 | PROVIDERS: ATTEND Surgery | DX: K41.20 Bilateral femoral hernia, without obstruction or gangrene, not specified as recurrent (principal) | CPT/HCPCS: 76881 ==

== ENCOUNTER 2023-10-09 21:38 | Emergency (ER) | payer MEDICAID ==
[2023-10-09] MEDS ORDERED: LEVO100C4 PO (22:14)
[2023-10-09] MEDS ORDERED: AMIT50TA3 PO (22:14)
[2023-10-09] MEDS ORDERED: BENZ200C53 PO (22:14)
[2023-10-09] MEDS ORDERED: OXYC-658 PO (22:14)
[2023-10-09] MEDS ORDERED: FOLI0.4T14 PO (22:14)
[2023-10-09] MEDS ORDERED: BUSP10TA3 PO (22:14)
[2023-10-09] MEDS ORDERED: CYCL-357 PO (22:14)
[2023-10-09] MEDS ORDERED: ALPR0.5T8 PO (22:14)
[2023-10-09 22:35] LABS: BASOPHILS % (AUTO) 0.4 % (0-1); EOSINOPHILS # (AUTO) 0.1 X10'3 (0-0.9); EOSINOPHILS % (AUTO) 0.9 % (0-6); HEMATOCRIT 42.4 % (35.0-45.0); HEMOGLOBIN 14.2 g/dl (12.0-16.0); LYMPHOCYTES # (AUTO) 1.4 X10'3 (1.1-4.8); LYMPHOCYTES % (AUTO) 21.3 % (21-51); MEAN CORPUSCULAR HGB CONC 33.5 g/dL (33.0-36.5); MEAN CORPUSCULAR VOLUME 101.5 FL (78-98); MEAN PLATELET VOLUME 8.2 FL (7.4-10.4); MONOCYTES # (AUTO) 0.3 X10'3 (0-0.9); MONOCYTES % (AUTO) 4.4 % (2-12); NEUTROPHILS # (AUTO) 4.8 X10'3 (1.8-7.7); PLATELET COUNT 145 X10'3 (140-440); RED BLOOD COUNT 4.17 X10'6 (4.20-5.60); RED CELL DISTRIBUTION WIDTH 15.6 % (11.5-14.5); WHITE BLOOD COUNT 6.6 X10'3 (4.5-11.0)
[2023-10-09 22:36] LABS: ALANINE AMINOTRANSFERASE 36 U/L (12-78); ALBUMIN 3.9 G/DL (3.4-5.0); ALKALINE PHOSPHATASE 153 IU/L (46-116); ANION GAP 15 (8-16); ASPARTATE AMINO TRANSFERASE 35 U/L (10-37); BILIRUBIN,TOTAL 0.5 MG/DL (0.1-1.0); BLOOD UREA NITROGEN 6 MG/DL (7-18); BUN/CREATININE RATIO 8.5 (10.0-20.0); CALCIUM 9.1 MG/DL (8.5-10.1); CHLORIDE 109 MMOL/L (99-107); CREATININE 0.71 MG/DL (0.40-0.90); ETHANOL 296 MG/DL (<10); GLUCOSE 114 MG/DL (70-104); POTASSIUM 3.4 MMOL/L (3.5-5.1); SALICYLATE 0.5 MG/DL (4.0-20.0); SODIUM 148 MMOL/L (135-145); TOTAL CARBON DIOXIDE 23.8 MMOL/L (24-32); eGFR 87 ML/MIN
[2023-10-09 22:38] LABS: URINE HCG NEGATIVE (NEG)
[2023-10-09 22:49] LABS: ACETAMINOPHEN < 2.0 UG/ML (10-30)
[2023-10-09] MEDS: normal saline 1000ML IV soln IVB ONE (22:49)
[2023-10-09 22:52] LABS: URINE AMPHETAMINE SCREEN NEGATIVE (Neg); URINE BARBITUATE SCREEN NEGATIVE (Neg); URINE BENZODIAZEPINES SCREEN NEGATIVE (Neg); URINE CANNABINOID SCREEN NEGATIVE (Neg); URINE COCAINE SCREEN NEGATIVE (Neg); URINE METHADONE SCREEN NEGATIVE (Neg); URINE OPIATE SCREEN NEGATIVE (Neg); URINE PHENCYCLIDINE SCREEN NEGATIVE (Neg)
[2023-10-09] MEDS: thiamine 100mg/ml 2ml inj. IV ONE (23:54)
[2023-10-10 00:02] LABS: BILIRUBIN,URINE NEGATIVE (Neg); CLARITY,URINE CLEAR (Clear); COLOR,URINE STRAW (Yellow); GLUCOSE, URINE NEGATIVE (Neg); KETONES,URINE NEGATIVE (Neg); LEUKOCYTE ESTERASE ,URINE NEGATIVE (Neg); NITRITES, URINE NEGATIVE (Neg); OCCULT BLOOD,URINE NEGATIVE (Neg); PROTEIN,URINE NEGATIVE (Neg); UROBILINOGEN,URINE 0.2 E.U/dL (0.2-1.0)
[2023-10-10 01:48] LABS: UA COLLECTION TYPE CLN CATCH MIDSTREAM
[2023-10-10 02:26] LABS: ACETAMINOPHEN < 2.0 UG/ML (10-30)
[2023-10-10] MEDS: potassium Cl 20 mEq SR tablet PO ONE (07:25)
[2023-10-10] MEDS: magnesium oxide 400mg tablet PO ONE (07:25)
[2023-10-10 07:28] VITALS: TEMP 98.7
[2023-10-10] MEDS ORDERED: CEPH250T PO (07:35)
[2023-10-10] MEDS: CefTRIAXone/D5W-Rocephin 1gm 50 ML IV ONE (08:09)
[2023-10-10] MEDS: morphine 2 MG/ML inj. syringe IV PRN (08:10)
[2023-10-10] MEDS ORDERED: ONDA4TAB12 PO (09:37)
[2023-10-10] MEDS ORDERED: AMIT50TA15 PO (13:02)
[2023-10-10] MEDS ORDERED: LEVO100T9 PO (13:02)
[2023-10-10] MEDS ORDERED: FAMO20TA8 PO (13:02)
[2023-10-10] MEDS ORDERED: ACET325T55 (13:02)
[2023-10-10] MEDS ORDERED: CYCL-1 PO (13:02)
[2023-10-10] MEDS: acetaminophen 325mg tablet PO ONE (13:13)
[2023-10-10 15:45] VITALS: BP 104/61; PULSE 64; RESP 16; O2SAT 96
== END 2023-10-10 16:06 | disposition home or self-care (01) ==
LOC: ER 21:39
DX: T40.602A Poisoning by unspecified narcotics, intentional self-harm, initial encounter (principal); F10.129 Alcohol abuse with intoxication, unspecified; F10.10 Alcohol abuse, uncomplicated; J45.909 Unspecified asthma, uncomplicated; K21.9 Gastro-esophageal reflux disease without esophagitis; Z88.1 Allergy status to other antibiotic agents; Z79.899 Other long term (current) drug therapy; Y92.89 Other specified places as the place of occurrence of the external cause; Y90.9 Presence of alcohol in blood, level not specified
CPT/HCPCS: 36415; 71045; 80053; 80305; 80320; 80329; 81003; 81025; 83735; 85025; 85610; 96361; 96365; 96375; 96376; 99285; J0696; J2270; J3411; J7030

== ENCOUNTER 2023-12-21 08:33 | Outpatient (CLI) | payer MEDICAID ==
[~2023-12-21 08:33] MED LIST changes: +ACET325T55; +ALPR0.5T8 PO; +AMIT50TA15 PO; +AMIT50TA3 PO; +BENZ200C53 PO; +BUSP10TA3 PO; -CIPR-202 PO; -CLIN-97 PO; +CYCL-1 PO; +CYCL-357 PO; -DIPH1TAB PO; +FAMO20TA8 PO; +FOLI0.4T14 PO; +LEVO100T9 PO; -NITR100C6 PO; -ONDA4TAB6 PO; +OXYC-658 PO; -PANT-47 PO; +iohexol 300mg/ml 100ml inj. ONE
== END 2023-12-21 23:59 | disposition home or self-care (01) ==
LOC: RAD 08:33
PROVIDERS: ATTEND Obstetrics & Gynecology
DX: K57.30 Diverticulosis of large intestine without perforation or abscess without bleeding (principal); K74.60 Unspecified cirrhosis of liver; I70.8 Atherosclerosis of other arteries; R10.2 Pelvic and perineal pain; Z98.890 Other specified postprocedural states
CPT/HCPCS: 74177; J3490; Q9967

== ENCOUNTER 2024-01-02 08:39 | Outpatient (CLI) | payer MEDICAID ==
[~2024-01-02 08:39] MED LIST changes: +ONDA-243 PO; -ONDA4TAB12 PO; -iohexol 300mg/ml 100ml inj. ONE
== END 2024-01-02 23:59 | disposition home or self-care (01) ==
LOC: MRI 08:39
PROVIDERS: ATTEND Physician Assistant
DX: M47.27 Other spondylosis with radiculopathy, lumbosacral region (principal); M47.22 Other spondylosis with radiculopathy, cervical region; M51.17 Intervertebral disc disorders with radiculopathy, lumbosacral region; R29.898 Other symptoms and signs involving the musculoskeletal system; M62.838 Other muscle spasm; F41.1 Generalized anxiety disorder; M47.812 Spondylosis without myelopathy or radiculopathy, cervical region; R40.4 Transient alteration of awareness; R41.81 Age-related cognitive decline
CPT/HCPCS: 70551; 72148

== ENCOUNTER 2024-03-10 10:36 | Outpatient (CLI) | payer MEDICAID | END 2024-03-10 23:59 | disposition home or self-care (01) | LOC: RAD 10:36 | PROVIDERS: ATTEND Neuromusculoskeletal Medicine & OMM | DX: R40.4 Transient alteration of awareness (principal) | CPT/HCPCS: 95816 ==

== ENCOUNTER 2024-10-03 12:35 | Emergency (ER) | payer MEDICAID ==
[~2024-10-03] VITALS: Ht 154.9 cm; Wt 66.4 kg
[2024-10-03 13:59] LABS: BILIRUBIN,URINE NEGATIVE (Neg); CLARITY,URINE CLEAR (Clear); COLOR,URINE YELLOW (Yellow); GLUCOSE, URINE NEGATIVE (Neg); KETONES,URINE NEGATIVE (Neg); LEUKOCYTE ESTERASE ,URINE NEGATIVE (Neg); NITRITES, URINE NEGATIVE (Neg); OCCULT BLOOD,URINE TRACE-INTACT (Neg); PROTEIN,URINE NEGATIVE (Neg); UROBILINOGEN,URINE 0.2 E.U/dL (0.2-1.0)
[2024-10-03 14:26] LABS: UA COLLECTION TYPE CLN CATCH MIDSTREAM
[2024-10-03] MEDS: ketorolac trometh 30MG/ML vial 30 MG/ML VIAL IM ONE (14:26)
[2024-10-03 14:33] LABS: BACTERIA,URINE NONE SEEN /HPF (Neg); RBC,URINE 0-2 /HPF (0-2); SQUAMOUS EPITHELIAL CELL,UR FEW /LPF (FEW); WBC,URINE 0-4 /HPF (0-4)
[2024-10-03] MEDS ORDERED: PSEU-259 PO (15:16)
[2024-10-03] MEDS ORDERED: FLUT16SP BOTHNARES (15:16)
[2024-10-03 15:31] LABS: HEMOGLOBIN 13.6 g/dl (12.0-16.0); LYMPHOCYTES # (AUTO) 0.9 X10'3 (1.1-4.8); MEAN CORPUSCULAR HGB CONC 34.5 g/dL (33.0-36.5); MONOCYTES # (AUTO) 0.3 X10'3 (0-0.9)
[2024-10-03 15:33] LABS: BASOPHILS % (AUTO) 0.5 % (0-1); EOSINOPHILS % (AUTO) 0.7 % (0-6); HEMATOCRIT 39.4 % (35.0-45.0); LYMPHOCYTES % (AUTO) 23.6 % (21-51); MEAN CORPUSCULAR HEMOGLOBIN 34.6 PG (27.0-31.0); MEAN CORPUSCULAR VOLUME 100.2 FL (78-98); MEAN PLATELET VOLUME 9.3 FL (7.4-10.4); MONOCYTES % (AUTO) 8.3 % (2-12); NEUTROPHILS # (AUTO) 2.4 X10'3 (1.8-7.7); NEUTROPHILS % (AUTO) 66.9 % (42-75); PLATELET COUNT 69 X10'3 (140-440); RED BLOOD COUNT 3.93 X10'6 (4.20-5.60); RED CELL DISTRIBUTION WIDTH 13.2 % (11.5-14.5); WHITE BLOOD COUNT 3.6 X10'3 (4.5-11.0)
[2024-10-03 16:06] LABS: ALANINE AMINOTRANSFERASE 32 U/L (12-78); ALBUMIN 3.9 G/DL (3.4-5.0); ALBUMIN/GLOBULIN RATIO 1.1 (1.1-1.5); ALKALINE PHOSPHATASE 116 IU/L (46-116); ASPARTATE AMINO TRANSFERASE 33 U/L (10-37); BILIRUBIN,TOTAL 0.6 MG/DL (0.1-1.0); BLOOD UREA NITROGEN 9 MG/DL (7-18); CALCIUM 9.1 MG/DL (8.5-10.1); CREATININE 0.53 MG/DL (0.40-0.90); GLUCOSE 91 MG/DL (70-104); POTASSIUM 3.8 MMOL/L (3.5-5.1); SODIUM 139 MMOL/L (135-145); TOTAL CARBON DIOXIDE 26.4 MMOL/L (24-32); TOTAL PROTEIN 7.5 G/DL (6.4-8.2); eCRCL 96 ML/MIN; eGFR > 90 ML/MIN
[2024-10-03 16:08] LABS: ANION GAP 10 (8-16); CHLORIDE 103 MMOL/L (99-107)
[2024-10-03] MEDS ORDERED: iohexol 300mg/ml 100ml inj. ONE (16:55)
[2024-10-03] MEDS ORDERED: CIPR500T5 PO (18:17)
[2024-10-03] MEDS ORDERED: METR-159 PO (18:17)
[2024-10-03 18:30] VITALS: BP 135/87; PULSE 68; RESP 19; TEMP 97.9; O2SAT 100
[2024-10-04] MEDS ORDERED: LEVO750T68 PO (02:32)
== END 2024-10-03 18:33 | disposition home or self-care (01) ==
LOC: ER 12:35
DX: J32.9 Chronic sinusitis, unspecified (principal); R10.2 Pelvic and perineal pain; M25.552 Pain in left hip; M25.551 Pain in right hip; M25.562 Pain in left knee; M25.561 Pain in right knee; M25.512 Pain in left shoulder; M25.532 Pain in left wrist; M25.531 Pain in right wrist; J45.909 Unspecified asthma, uncomplicated; K21.9 Gastro-esophageal reflux disease without esophagitis; Z88.0 Allergy status to penicillin; Z88.1 Allergy status to other antibiotic agents; Z98.890 Other specified postprocedural states
CPT/HCPCS: 36415; 74177; 80053; 81001; 85025; 96372; 99285; J1885; Q9967

== ENCOUNTER 2025-07-22 12:52 | Emergency (ER) | payer MEDICAID ==
[~2025-07-22] VITALS: Ht 154.9 cm; Wt 64.8 kg
[~2025-07-22 12:52] MED LIST changes: -AMIT50TA3 PO; +FLUT16SP BOTHNARES; -FOLI0.4T14 PO; +FOLI0.4T3 PO; +PSEU-259 PO; +[UNRECOGNIZED DRUG - CODE] PO
[2025-07-22 12:59] VITALS: TEMP 97
--- NOTE | 2025-07-22 14:04 | Physician Documentation ---
History of Present Illness ~ General Chief Complaint: Multiple Medical Complaints Stated Complaint: THROAT/ NECK PAIN Time Seen by MD: 13:09 Primary Medical Doctor: ruchi Source: patient Mode of Arrival: POV History of Present Illness Initial Comments Patient is a 50-year-old female with history of asthma presenting to the ED for evaluation of a sore throat with associated neck pain for the past six days. Patient reports of having a slight wheeze, but denies cough. She has an inhaler at home but has not had relief with usage. No other questions, concerns or complaints at this time. Medication Reconciliation Allergies: Coded Allergies: amoxicillin (Verified Adverse Reaction, Unknown, n/v, diarrhea, gi bleed, 07/22/25) doxycycline (Verified Adverse Reaction, Unknown, 07/22/25) Scheduled Amitriptyline Hcl (Amitriptyline Hcl), 50 MG PO DAILY, (Reported) Amitriptyline Hcl* (Elavil*), 1 TAB PO HS, (Reported) Azithromycin (Azithromycin), 1 TAB PO UD Buspirone HCl (Buspirone HCl), 1 TAB PO Q12H, (Reported) Cyclobenzaprine HCl (Cyclobenzaprine HCl), 1 TAB PO Q8H, (Reported) Cyclobenzaprine* (Cyclobenzaprine*), 1 TAB PO TID, (Reported) Famotidine (Famotidine), 1 TAB PO DAILY, (Reported) Fluticasone Propionate (Fluticasone Propionate), 2 SPRAYS BOTHNARES DAILY Folic Acid (FOLIC ACID tablet), 1 TAB PO DAILY, (Reported) Folic Acid* (Folic Acid*), 1 TAB PO DAILY, (Reported) Furosemide (Furosemide), 1 TAB PO TID, (Reported) Levothyroxine Sodium (Synthroid), 1 TAB PO DAILY, (Reported) Levothyroxine Sodium (Levothyroxine Sodium), 1 TAB PO DAILY, (Reported) Midodrine HCl (Midodrine HCl), 10 MG PO Q6HR, (Reported) ONDANSETRON ODT 4mg tablet (Ondansetron Odt), 4 MG PO BID, (Reported) Prednisone* (Prednisone*), 2 TAB PO DAILY Rifaximin (Xifaxan), 1 TAB PO Q12H, (Reported) Spironolactone (Spironolactone), 1 TAB PO DAILY, (Reported) Thiamine HCl (Thiamine HCl), 1,000 MG DAILY, (Reported) Tramadol HCl (Tramadol HCl), 1 TABLET PO Q6H, (Reported) Zinc Gluconate-Zinc Picolinate (Zinc), 220 MG PO DAILY, (Reported) Scheduled PRN Benzonatate (Benzonatate), 1 CAP PO TID PRN PRN for cough, (Reported) Oxycodone Hcl IR* (Oxycodone IR*), 0.5 TAB PO Q6H PRN for moderate to severe pain, (Reported) Pseudoephedrine Hcl (SUDAFED tablet), 1 TAB PO Q8H PRN for nasal congestion Miscellaneous Medications Acetaminophen (Acetaminophen), (Reported) Alprazolam (Alprazolam), 0.5 MG PO, (Reported) Discontinued Medications Amoxicillin Trihydrate (Amoxicillin), 1 CAP PO Q8H Discontinued Reason: Prescription changed Past Medical History Past Medical History: Asthma, *GI/HEPATOBILIARY*, Cirrohsis, Diverticulitis, GERD, GI Bleed, Hemorrhoids, Anemia, Liver Disease, Hernia, Hyperthyroidism Past Surgical History: other Other Past Surgical History: hernia repair Patient History: (MS) Myocardial infarction FAMILY/OTHER, Onset:40's - 50 (TIA) Transient ischemic attack Alcohol Use: Heavy Drug Use: none Lives with: Spouse Lives In: Home Occupation: employed Review of Systems ROS ROS: Constitutional: Negative for fever and chills. HENT: + sore throat, Negative for rhinorrhea. Eyes:Negative for pain and redness. Respiratory: Negative for cough and shortness of breath. Cardiovascular: Negative for chest pain and palpitations. Gastrointestinal: Negative for nausea and vomiting. Genitourinary: Negative for dysuria and hematuria. Musculoskeletal: Negative for acute back pain and acute neck pain. Skin: Negative for rash and pruritus. Neurological: Negative for acute numbness or weakness. Physical Exam Physical Exam Vital Signs: Temperature: 97.0, Source: Temporal, Heart Rate: 89, Respiratory Rate: 18, BP: 138/91, Pulse Oximetry: 96, Weight: 64.800 Oxygen Flow Rate: 0 Physical Exam PHYSICAL EXAM: General Appearance: WDWN, No Distress, Cooperative, Awake, speaking in full sentences Head: No Trauma. Scalp Normal Eyes: Lids normal, conjunctiva normal ENT: Mucous membranes normal, facial bones normal, lips normal, right peritonsillar erythema with scant exudates, Neck: Normal active FROM, non-tender with ROM, no meningeal signs, positive submandibular lymphadenopathy Back: Normal active FROM, non-tender with ROM, no CVAT Resp: Normal resp rate, no resp distress, no retractions, mild expiratory wheeze Heart: Reg rhythm, no murmur Abd: Soft, non-tender, no guarding, no rebound, no mass Musc/Skel: No chest wall tenderness, Normal ROM UE's and LE's, No acute bone/ joint abnormality or tenderness Skin: Normal color, no petechia/purpura, no rash Extremities: No edema Neuro: Motor 5/5 & Symmetric Bilat, CN 2-12 grossly intact and symmetric bilat. Oriented x4, speech normal. Psych: Mood & Affect: Normal, Depressed: 0, Awareness & insight normal Progress Results/Orders Results/Orders Orders - NISREEN JAVED MD Chest,Two Views (07/22/25 ) Svn Treatment (07/22/25 14:00) Completed Orders - NISREEN JAVED MD Chest,Two Views (07/22/25 ) Prednisone Tablet (Prednisone Tablet) (07/22/25 14:00) Albuterol 2.5mg/3ml Nebule (Proventil 2. (07/22/25 14:00) Ipratropium/Albuterol Nebule (Ipratrop/A (07/22/25 14:00) Medications Received in ER Medications (Trade) Dose Ordered Sig/Bao Route PRN Reason Start Time Stop Time Status Last Admin Dose Admin (predniSONE tablet) 40 mg ONCE ONCE PO 07/22/25 14:00 07/22/25 14:04 DC 07/22/25 14:16 40 MG (Proventil 2.5 MG/3ML nebule) 2.5 mg ONCE ONCE NEB 07/22/25 14:00 07/22/25 14:04 DC 07/22/25 14:21 2.5 MG (ipratrop/ albuterol 0.5-3(2.5) MG/3ml nebule) 3 ml ONCE ONCE NEB 07/22/25 14:00 07/22/25 14:09 DC 07/22/25 14:21 3 ML Vital Signs 07/22/25 07/22/25 07/22/25 07/22/25 12:59 14:17 14:22 14:30 Temp 97.0 Pulse 89 85 75 90 Resp 18 15 16 18 B/P (MAP) 138/91 116/84 (95) Pulse Ox 96 94 98 99 O2 Delivery Room Air* Room Air* O2 Flow Rate 0 0 0 FiO2 21 21 07/22/25 07/22/25 07/22/25 14:52 15:48 16:32 Pulse 97 69 Resp 17 16 15 B/P (MAP) 116/83 (94) 115/73 Pulse Ox 100 99 Medical Decision Making Additional information obtaine: N/A Findings n/a Differential Diagnosis Patient is a 50-year-old female with history of asthma presenting to the ED for evaluation of a sore throat with associated neck pain for the past six days. Departure Impression: Primary Impression: Acute pharyngitis Additional Impression: Acute bronchospasm Discharge Instructions: Pharyngitis, [id number] Referrals: NO PRIMARY CARE PROVIDER (PCP) 5 days Prescriptions Azithromycin (Azithromycin) 250 Mg Tablet 1 TAB PO UD for 5 Days, #6 TAB 2 the first day followed by 1 for days 2-5 Prov: NISREEN JAVED MD 07/22/25 Prednisone* (Prednisone*) 20 Mg Tablet 2 TAB PO DAILY for 3 Days, #6 TAB Prov: NISREEN JAVED MD 07/22/25 Education Educated: Patient Educated regarding: diagnosis, treatment Signature Scribe Signature: Scribed for Nisreen Javed MD by Mary Hope . 07/22/25 14:14 Attestation: The note accurately reflects work and decisions made by me.Nisreen Javed MD 07/22/25 NISREEN JAVED MD Jul 22, 2025 14:04 MARY NIETO Jul 22, 2025 14:18
[2025-07-22] MEDS: albuterol 2.5 MG/3 ML nebule NEB ONE (14:21)
[2025-07-22] MEDS: ipratropium/albuterol 3ml nebule NEB ONE (14:21)
[2025-07-22 14:22] VITALS: PULSE 75; RESP 16; O2SAT 98
[2025-07-22 14:30] VITALS: PULSE 90; RESP 18; O2SAT 99
--- NOTE | 2025-07-22 14:55 | RADIOLOGY REPORT ---
CHEST RADIOGRAPH INDICATION: protocol TECHNIQUE: Two views of the chest was obtained. COMPARISON: DI CHEST,SINGLE VIEW on DOS: 10/09/23, CHEST,SINGLE VIEW on DOS: 05/07/21 FINDINGS: No focal consolidation. No significant pleural effusion. No pneumothorax. Nonenlarged cardiomediastinal silhouette. IMPRESSION: No acute pulmonary process.
[2025-07-22] MEDS ORDERED: AMOX-100 PO (16:16)
[2025-07-22] MEDS ORDERED: PRED20TA PO (16:16)
[2025-07-22] MEDS ORDERED: AZIT250T83 PO (16:29)
[2025-07-22 16:32] VITALS: BP 115/73; PULSE 69; RESP 15; O2SAT 99
== END 2025-07-22 16:36 | disposition home or self-care (01) ==
LOC: ER 12:54
DX: J02.9 Acute pharyngitis, unspecified (principal); M54.2 Cervicalgia; K21.9 Gastro-esophageal reflux disease without esophagitis; D64.9 Anemia, unspecified; E05.90 Thyrotoxicosis, unspecified without thyrotoxic crisis or storm; Z88.1 Allergy status to other antibiotic agents; Z87.19 Personal history of other diseases of the digestive system; Z98.890 Other specified postprocedural states; Z79.899 Other long term (current) drug therapy
CPT/HCPCS: 71046; 94640; 99283; J7512; 94760